=== PATIENT | female | born 1965 | race Caucasian/White ===

== ENCOUNTER → 2019-12-24 | Outpatient (CLI) | payer MEDICARE ==
--- NOTE | 2019-12-24 14:58 | Diagnostic Imaging Report ---
PROCEDURE: CT chest without contrast. TECHNIQUE: Multiple contiguous axial images were obtained through the chest without the use of intravenous contrast. Auto Exposure Controls were utilized during the CT exam to meet ALARA standards for radiation dose reduction. INDICATION: Chest pain and shortness of air. No prior studies are available for comparison. No axillary lymphadenopathy is identified. No definite mediastinal or hilar lymphadenopathy is seen. There are some calcified lymph nodes in the left hilum and subcarinal region consistent with prior granulomatous exposure. No pericardial or pleural fluid is identified. Parenchymal evaluation does show some mild centrilobular emphysematous changes. Some minimal linear scarring in the superior segment left lower lobe. There is some linear scarring or atelectasis in the right middle lobe and lingula as well. No infiltrate or mass is identified. Upper abdomen is unremarkable. IMPRESSION: Centrilobular emphysematous changes as well as areas of scarring in the lung bases bilaterally. No acute features identified. No pulmonary mass or thoracic lymphadenopathy is identified. Dictated by: Dictated on workstation # [id number]
== END ==
LOC: RAD 14:00
PROVIDERS: ATTEND Physician Assistant
DX: J43.2 Centrilobular emphysema (principal)
CPT/HCPCS: 71250